=== PATIENT | female | born 1975 ===

== ENCOUNTER 2017-01-28 13:50 | Emergency (ER) | payer MEDICAID, OTHER ==
[2017-01-28 13:53] VITALS: BMI 21.6
[2017-01-28 13:54] VITALS: BP 142/70; PULSE 83; RESP 17; TEMP 98.7; O2SAT 99
--- NOTE | 2017-01-28 14:30 | ED PDOC ---
HPI: Abdomen Time Seen by Provider: 01/28/17 14:15 Chief Complaint (Nursing): Abdominal Pain Chief Complaint (Provider): Abdominal pain History Per: Patient History/Exam Limitations: no limitations Onset/Duration Of Symptoms: Days (2) Location Of Pain/Discomfort: RUQ Quality Of Discomfort: Sharp Associated Symptoms: denies: Fever, Chills, Vomiting, Urinary Symptoms Last Bowel Movement: Yesterday Additional Complaint(s): Patient is a 42 year old female presenting to the emergency department for sharp right upper quadrant pain x2 days. Reports being and that pain is currently minimal. Also notes that this is her second and her last normal menstrual period was 10/08/16. Denies care, vaginal bleeding, vaginal discharge, urinary frequency, urinary pain, hematuria, fever, chills, or vomiting. PCP: none provided. Last Menstral Period: 10/08/16 : 2 Para: 1 Past Medical History Reviewed: Historical Data, Nursing Documentation, Vital Signs Vital Signs: Last Vital Signs Temp 98.7 F 01/28/17 13:53 Pulse 83 01/28/17 13:53 Resp 17 01/28/17 13:53 BP 142/70 01/28/17 13:53 Pulse Ox 99 01/28/17 17:12 - Medical History PMH: Denies: Diabetes, Hepatitis, HIV, HTN, Seizures, Sexually Transmitted Disease - Surgical History Surgical History: No Surg Hx - Family History Family History: States: Unknown Family Hx - Social History Current smoker - smoking cessation education provided: No Ex-Smoker (has not smoked in the last 12 months): No Alcohol: None Drugs: Denies - Home Medications Home Medications: Ambulatory Orders Medication Instructions Recorded Pnv No.121/Iron/Folic Acid 1 each PO DAILY #30 tablet 01/28/17 [ Multivitamin Tablet] - Allergies Allergies/Adverse Reactions: Allergies Allergy/AdvReac Type Severity Reaction Status Date / Time No Known Allergies Allergy Verified 07/15/16 22:47 Review of Systems ROS Statement: Except As Marked, All Systems Reviewed And Found Negative Constitutional: Negative for: Fever, Chills Gastrointestinal: Positive for: Abdominal Pain (sharp right upper quadrant abdominal pain). Negative for: Vomiting Genitourinary Female: Negative for: Dysuria, Frequency, Hematuria, Vaginal Discharge, Vaginal Bleeding Physical Exam - Reviewed Nursing Documentation Reviewed: Yes Vital Signs Reviewed: Yes - Physical Exam Appears: Positive for: Well, Non-toxic, No Acute Distress. Negative for: Uncomfortable Head Exam: Positive for: ATRAUMATIC, NORMAL INSPECTION, NORMOCEPHALIC Skin: Positive for: Normal Color, Warm, Dry Eye Exam: Positive for: EOMI, Normal appearance, PERRL ENT: Positive for: Normal ENT Inspection Neck: Positive for: Normal, Painless ROM, Supple Cardiovascular/Chest: Positive for: Regular Rate, Rhythm. Negative for: Murmur Respiratory: Positive for: Normal Breath Sounds. Negative for: Accessory Muscle Use, Respiratory Distress Gastrointestinal/Abdominal: Positive for: Normal Exam, Soft. Negative for: Tenderness Back: Positive for: Normal Inspection Extremity: Positive for: Normal ROM. Negative for: Pedal Edema Neurologic/Psych: Positive for: Alert, Oriented - Laboratory Results Result Diagrams: 01/28/17 15:01 01/28/17 15:01 - ECG O2 Sat by Pulse Oximetry: 99 (RA) Pulse Ox Interpretation: Normal - Progress ED Course And Treament: us pelvic: 17 week 5 day SLIUP; fhr 147 Medical Decision Making Medical Decision Making: Time: 14:20 Upon initial evaluation, patient is noted to be pain-free in the ER. Initial plan: Labs Ultrasound OB Reevaluation 16:10 Positive beta HCG noted. Pending OB Ultrasound reading. 16:50 OB Ultrasound reviewed and findings noted: There is a single living fetus in variable presentation. Posterior placenta. The placenta is not previa. Bilateral ovaries were not visualized. There are no adnexal masses or cysts evident. Cervix length measures approximately 4.8 cm. Measurements and calculations: Fetus has a composite sonographic age of 17 weeks 5 days. This calculation is based on the biparietal diameter, head circumference, abdominal circumference, and femur length. Estimated heart rate 147 beats per min. Impression: Single living fetus with a composite sonographic age of 17 weeks 5 days. Estimated heart rate 147 beats per min. The study was performed for the emergent evaluation of abdominal pain, and the whole anatomic survey of the fetus was not performed. This should be performed on an outpatient elective basis as clinically warranted. Scribe Attestation: Documented by Kalie Sterling, acting as a scribe for GIOVANY Weiss. Provider Scribe Attestation: All medical record entries made by the Scribe were at my direction and personally dictated by me. I have reviewed the chart and agree that the record accurately reflects my personal performance of the history, physical exam, medical decision making, and the department course for this patient. I have also personally directed, reviewed, and agree with the discharge instructions and disposition. Disposition - Clinical Impression Clinical Impression: Abdominal pain during - Patient ED Disposition Is Patient to be Admitted: No - Disposition [facility] Disposition: Routine/Home Disposition Time: 17:15 Condition: FAIR Prescriptions: Pnv No.121/Iron/Folic Acid [ Multivitamin Tablet] 1 each PO DAILY #30 tablet Instructions: Abdominal Pain in (ED) Print Language: KAZAKH
[2017-01-28 15:18] LABS: ALKALINE PHOSPHATASE 68 U/L (38-126); ALT/SGPT 18 U/L (9-52); AST/SGOT 18 U/L (14-36); BILIRUBIN,TOTAL 0.3 mg/dl (0.2-1.3); BLOOD UREA NITROGEN 8 mg/dl (7-17); CARBON DIOXIDE 23 mmol/L (22-30); CHLORIDE 106 mmol/L (98-107); GFR AFRICAN-AMERICAN > 60; GLUCOSE,RANDOM 99 mg/dL (65-105); POTASSIUM 3.5 MMOL/L (3.6-5.0); SODIUM 137 mmol/l (132-148); TOTAL PROTEIN 7.1 G/DL (6.3-8.2)
[2017-01-28 15:23] LABS: BASO # 0.1 K/uL (0.0-0.2); BASO % 0.7 % (0.0-2.0); EOS # 0.1 K/uL (0.0-0.7); EOS % 0.6 % (0.0-4.0); HEMATOCRIT 28.9 % (34.0-47.0); LYMPH # 2.4 K/uL (1.0-4.3); LYMPH % 24.6 % (20.0-40.0); MEAN CELL VOLUME 73.8 fl (81.0-99.0); MEAN CORPUSCULAR HGB CONC 32.5 g/dL (33.0-37.0); MEAN PLATELET VOLUME 8.4 fl (7.2-11.7); MONO # 0.6 K/uL (0.0-0.8); MONO % 6.2 % (0.0-10.0); NEUT # 6.5 K/uL (1.8-7.0); NEUT % 67.9 % (50.0-75.0); NRBC % 0.2 % (0.0-0.0); RED CELL DISTRIBUTION WIDTH 19.1 % (11.5-14.5); WHITE BLOOD COUNT 9.6 K/uL (4.8-10.8)
--- NOTE | 2017-01-28 16:52 | US ---
OB , limited Indication: abdominal pain in Comparison: None available Technique: Real-time ultrasound was performed through the pelvis. Findings: There is a single living fetus in variable presentation. Posterior placenta. The placenta is not previa. Bilateral ovaries were not visualized. There are no adnexal masses or cysts evident. Cervix length measures approximately 4.8 cm. Measurements and calculations: Fetus has a composite sonographic age of 17 weeks 5 days. This calculation is based on the biparietal diameter, head circumference, abdominal circumference, and femur length. Estimated heart rate 147 beats per min. Impression: Single living fetus with a composite sonographic age of 17 weeks 5 days. Estimated heart rate 147 beats per min. The study was performed for the emergent evaluation of abdominal pain, and the whole anatomic survey of the fetus was not performed. This should be performed on an outpatient elective basis as clinically warranted.
== END 2017-01-28 17:29 | disposition home or self-care (01) ==
LOC: H.ER 13:50
DX: O26.892 Other specified pregnancy related conditions, second trimester (principal); Z3A.17 17 weeks gestation of pregnancy

== ENCOUNTER 2017-02-03 17:47 | Emergency (ER) | payer MEDICAID, OTHER ==
[2017-02-03 17:47] VITALS: BMI 21.6
[2017-02-03 17:58] VITALS: RESP 18; TEMP 97
--- NOTE | 2017-02-03 18:21 | ED PDOC ---
HPI: General Adult Time Seen by Provider: 02/03/17 18:06 Chief Complaint (Nursing): Abdominal Pain Chief Complaint (Provider): Suprapubic pain History Per: Patient History/Exam Limitations: no limitations Onset/Duration Of Symptoms: Days (today) Have you had recent travel within the past 21 days to any of the following countries: [place], [place], [place] or [place]?: No Current Symptoms Are (Timing): Still Present Additional Complaint(s): Pt. with suprapubic pain. Increased urgency of urination. No dysuria or freq of urination. No other abd pain. No weakness, back pain, nausea, vomit, dizziness. Is 17 preg. Had ultrasound and eval in ER recently and was told all was ok. Pending OBGYN appt. No vaginal bleeding or pelvic cramping. Past Medical History Reviewed: Historical Data, Nursing Documentation, Vital Signs Vital Signs: Last Vital Signs Temp 97 F L 02/03/17 17:54 Pulse 82 02/03/17 17:54 Resp 18 02/03/17 17:54 BP 136/72 02/03/17 17:54 Pulse Ox 99 02/03/17 18:25 - Medical History PMH: No Chronic Diseases Denies: Diabetes, Hepatitis, HIV, HTN, Seizures, Sexually Transmitted Disease - Surgical History Surgical History: No Surg Hx - Family History Family History: States: Unknown Family Hx - Social History Current smoker - smoking cessation education provided: No Alcohol: None Drugs: Denies - Home Medications Home Medications: Ambulatory Orders Medication Instructions Recorded Pnv No.121/Iron/Folic Acid 1 each PO DAILY #30 tablet 01/28/17 [ Multivitamin Tablet] - Allergies Allergies/Adverse Reactions: Allergies Allergy/AdvReac Type Severity Reaction Status Date / Time No Known Allergies Allergy Verified 07/15/16 22:47 Review of Systems ROS Statement: Except As Marked, All Systems Reviewed And Found Negative Gastrointestinal: Positive for: Abdominal Pain (suprapubic pain) Physical Exam - Reviewed Nursing Documentation Reviewed: Yes Vital Signs Reviewed: Yes - Physical Exam Appears: Positive for: Non-toxic, No Acute Distress Head Exam: Positive for: ATRAUMATIC, NORMAL INSPECTION, NORMOCEPHALIC Skin: Positive for: Normal Color, Warm, DRY Cardiovascular/Chest: Positive for: Regular Rate, Rhythm Respiratory: Positive for: CNT, Normal Breath Sounds Gastrointestinal/Abdominal: Positive for: Bowel Sounds, Soft, Tenderness ( suprapubic tender mild; no tenderness to umbilicus, right or left upper or lower quadrant.) Back: Positive for: Normal Inspection. Negative for: L CVA Tenderness, R CVA Tenderness Extremity: Positive for: Normal ROM. Negative for: Tenderness, Pedal Edema Neurologic/Psych: Positive for: Alert, Oriented - Laboratory Results Result Diagrams: 02/03/17 18:42 02/03/17 18:42 Interpretation Of Abn Labs: no acute - ECG O2 Sat by Pulse Oximetry: 99 Pulse Ox Interpretation: Normal - Progress ED Course And Treament: 1824: On 01/28/17 pt. had US showing SLIUP. Based on that ectopic ruled out. Will check urine and basic blood work. Will get heart rate. 1916: Stable. AAOx3. Pain free. Tolerated PO. Fu with pcp. Disposition - Clinical Impression Clinical Impression: Pelvic pain affecting - Patient ED Disposition Is Patient to be Admitted: No Counseled Patient/Family Regarding: Studies Performed, Diagnosis, Need For Followup - Disposition [facility] - 02/04/17 Disposition: Routine/Home Disposition Time: 19:00 Condition: STABLE Additional Instructions: Return if not better in 3 days. Instructions: (ED) Forms: [facility] (Finnish)
[2017-02-03 18:50] LABS: BASO # 0.1 K/uL (0.0-0.2); BASO % 0.8 % (0.0-2.0); EOS # 0.1 K/uL (0.0-0.7); EOS % 0.6 % (0.0-4.0); HEMATOCRIT 31.1 % (34.0-47.0); LYMPH # 2.4 K/uL (1.0-4.3); LYMPH % 20.3 % (20.0-40.0); MEAN CELL VOLUME 75.3 fl (81.0-99.0); MEAN CORPUSCULAR HEMOGLOBIN 23.3 pg (27.0-31.0); MEAN PLATELET VOLUME 7.7 fl (7.2-11.7); MONO # 0.7 K/uL (0.0-0.8); MONO % 5.8 % (0.0-10.0); NEUT # 8.7 K/uL (1.8-7.0); NEUT % 72.5 % (50.0-75.0); NRBC % 0.1 % (0.0-0.0); RED CELL DISTRIBUTION WIDTH 19.1 % (11.5-14.5)
[2017-02-03 19:03] LABS: ALKALINE PHOSPHATASE 77 U/L (38-126); ALT/SGPT 22 U/L (9-52); AST/SGOT 23 U/L (14-36); BILIRUBIN,TOTAL 0.4 mg/dl (0.2-1.3); BLOOD UREA NITROGEN 7 mg/dl (7-17); CALCIUM 9.4 mg/dL (8.4-10.2); CARBON DIOXIDE 25 mmol/L (22-30); CHLORIDE 103 mmol/L (98-107); GFR AFRICAN-AMERICAN > 60; GLUCOSE,RANDOM 91 mg/dL (65-105); POTASSIUM 4.3 MMOL/L (3.6-5.0); SODIUM 135 mmol/l (132-148); TOTAL PROTEIN 7.4 G/DL (6.3-8.2)
[2017-02-03 19:07] LABS: RBC URINE 2 /hpf (0-3); URINE BACTERIA RARE (<OCC); URINE BILIRUBIN NEGATIVE (NEGATIVE); URINE BLOOD NEGATIVE (NEGATIVE); URINE COLOR YELLOW (YELLOW); URINE GLUCOSE (UA) NEG (Normal); URINE KETONE NEGATIVE (NEGATIVE); URINE LEUKOCYTE ESTERASE NEG Leu/uL (Negative); URINE PROTEIN NEGATIVE (NEGATIVE); URINE UROBILINOGEN 0.2-1.0 mg/dL (0.2-1.0); WBC URINE < 1 /hpf (0-5)
[2017-02-03 20:30] VITALS: BP 114/74; PULSE 86; O2SAT 100
== END 2017-02-03 20:30 | disposition home or self-care (01) ==
LOC: H.ER 17:47
DX: O26.899 Other specified pregnancy related conditions, unspecified trimester (principal)

== ENCOUNTER 2017-07-02 17:45 | Inpatient (IN) | payer MEDICAID ==
[2017-07-02 18:46] VITALS: BMI 31.4
[2017-07-02] MEDS ORDERED: Oxytocin 30 UNITS in Sodium Chloride 0.9% 500 ML IV SCH ×2 (19:00→23:30)
[2017-07-02 19:02] VITALS: RESP 18; TEMP 98.3; O2SAT 97
[2017-07-02 19:32] LABS: BASO # 0.1 K/uL (0.0-0.2); BASO % 0.7 % (0.0-2.0); EOS % 0.2 % (0.0-4.0); HEMOGLOBIN 12.5 g/dL (12.0-16.0); LYMPH # 1.6 K/uL (1.0-4.3); LYMPH % 19.7 % (20.0-40.0); MEAN CELL VOLUME 90.4 fl (81.0-99.0); MEAN CORPUSCULAR HEMOGLOBIN 28.8 pg (27.0-31.0); MEAN CORPUSCULAR HGB CONC 31.8 g/dL (33.0-37.0); MEAN PLATELET VOLUME 8.7 fl (7.2-11.7); MONO # 0.4 K/uL (0.0-0.8); MONO % 4.9 % (0.0-10.0); NEUT # 5.9 K/uL (1.8-7.0); NEUT % 74.5 % (50.0-75.0); NRBC % 0.1 % (0.0-0.0); RBC 4.35 Mil/uL (3.80-5.20); RED CELL DISTRIBUTION WIDTH 15.9 % (11.5-14.5); WHITE BLOOD COUNT 7.9 K/uL (4.8-10.8)
--- NOTE | 2017-07-02 21:01 | OBHP ---
Datetime: 07/02/2017 18:45 IP Adm Impression: Term, intrauterine IP Admit Plan: Admit to unit; Initiate labor induction protocol Admit Comment, IP Provider: 42 yo ega 39.6 based on confirmed us on 01/28/2017 presents with po ssible SROM. 3 hours preceeding arrival, she reports lots of clear fluid per vagina. +: fm, ctx denies: VB, CP/SOB/N/V/dysuria PNC: Dr. Sutton obhx: 1996 at 40 wks male uncomplicated gyne: denies hx of sti; neg pap med hx: anxiety and depression after father's in 07/2016. Pt was seeing psych at the clinic. No meds; resolved. no SI/HI famhx: none surg: none soc: denies smoking, alcohol, illicit drugs rx: pnv NKDA AAOX3 cardiac: s1s2 no murmur lungs: clear bilaterally no wheezing abdo: gravid, nontender speculum: white mucous discharge, no lesion, nitrazine negative; pelvic: 1 cm, 60 %, -3; GBS: neg; O+ ab-; hiv neg; rpr neg; gc/c: neg; rubella: IM; hhbag: neg; ppd 03/30/2017; tdap: 12/0 01/2017 42 yo IUP 39.6 -Scheduled iol, previously for 20:00; reason: AMA -labs: cbc, ts, cervidil - monitor case dw Dr. Jose Antonio Velazquez MD PGY1 ob addendum: pt seen _ exmined by me. agree w/ above assessment and mariela. Pelvic Type - PN: Adequate Extremities - PN: Normal Abdomen - PN: Normal Back - PN: Normal Breast - PN: Normal Lungs - PN: Normal Heart - PN: Normal Thyroid - PN: Normal Neurologic - PN: Normal HEENT - PN: Normal General - PN: Normal FHR - Baseline A Provider: 140 Pool Provider: Negative Nitrazine Provider: Negative EGA AdmitDate IP: 39.6 Vital Signs Provider: Reviewed; Within Normal Limits IP Chief Complaint: Uterine contractions; Scheduled induction of labor NICHD Variability Prov Fetus A: Moderate 6-25bpm NICHD Accel Fetus A IP Provider: 15X15 FHR Category Provider Fetus A: Category I NICHD Decel Fetus A IP Provider: None Dilatation, Provider: 1 Effacement, Provider: 60 Station, Provider: -3 Genitourinary Exam: Normal DTRs - PN: Normal Datetime: 07/02/2017 18:30 Membranes, Provider: Intact Contraction Comments Provider: rare
--- NOTE | 2017-07-02 21:17 | OBADHP ---
Datetime: 07/02/2017 18:45 Admit Comment, IP Provider: 42 yo ega 39.6 based on confirmed us on 01/28/2017 presents with po ssible SROM. 3 hours preceeding arrival, she reports lots of clear fluid per vagina. +: fm, ctx denies: VB, CP/SOB/N/V/dysuria PNC: Dr. Sutton obhx: 1996 at 40 wks male uncomplicated gyne: denies hx of sti; neg pap med hx: anxiety and depression after father's in 07/2016. Pt was seeing psych at the clinic. No meds; resolved. no SI/HI famhx: none surg: none soc: denies smoking, alcohol, illicit drugs rx: pnv NKDA AAOX3 cardiac: s1s2 no murmur lungs: clear bilaterally no wheezing abdo: gravid, nontender speculum: white mucous discharge, no lesion, nitrazine negative; pelvic: 1 cm, 60 %, -3; GBS: neg; O+ ab-; hiv neg; rpr neg; gc/c: neg; rubella: IM; hhbag: neg; ppd 03/30/2017; tdap: 12/0 01/2017 42 yo IUP 39.6 -Scheduled iol, previously for 20:00; reason: AMA -labs: cbc, ts, cervidil - monitor case dw Dr. Jose Antonio Velazquez MD PGY1 ob addendum: pt seen _ exmined by me. agree w/ above assessment and mariela. Pelvic Type - PN: Adequate Extremities - PN: Normal Abdomen - PN: Normal Back - PN: Normal Breast - PN: Normal Lungs - PN: Normal Heart - PN: Normal Thyroid - PN: Normal Neurologic - PN: Normal HEENT - PN: Normal General - PN: Normal FHR - Baseline A Provider: 140 Pool Provider: Negative Nitrazine Provider: Negative Vital Signs Provider: Reviewed; Within Normal Limits IP Chief Complaint: Uterine contractions; Scheduled induction of labor NICHD Variability Prov Fetus A: Moderate 6-25bpm NICHD Accel Fetus A IP Provider: 15X15 FHR Category Provider Fetus A: Category I NICHD Decel Fetus A IP Provider: None Dilatation, Provider: 1 Effacement, Provider: 60 Station, Provider: -3 Genitourinary Exam: Normal DTRs - PN: Normal EGA AdmitDate IP: 39.6 IP Adm Impression: Term, intrauterine IP Admit Plan: Admit to unit; Initiate labor induction protocol Datetime: 07/02/2017 18:30 Membranes, Provider: Intact Contraction Comments Provider: rare
[2017-07-02] MEDS: Lactated Ringer's 1,000 ML IV SCH (23:10)
[2017-07-02] MEDS ORDERED: Nalbuphine 20 mg/ml Inj (1 ml) IVP PRN (23:33)
[2017-07-03] MEDS: Lactated Ringer's 1,000 ML IV SCH ×4 (00:29→06:40)
[2017-07-03] MEDS ORDERED: Lidocaine 1% Inj (20ml) ONE (01:34)
[2017-07-03] MEDS ORDERED: Fentanyl/Bupivacaine HCl 250 ML EPI ONE (02:45)
[2017-07-03] MEDS ORDERED: Oxycodone/Acetaminophen 5/325 mg Tab PO PRN ×4 (10:08→14:36)
[2017-07-03] MEDS ORDERED: Benzocaine/Menthol SPRAY TOP PRN (14:48)
[2017-07-04 07:03] LABS: BASO # 0.1 K/uL (0.0-0.2); BASO % 0.3 % (0.0-2.0); EOS # 0.1 K/uL (0.0-0.7); EOS % 0.6 % (0.0-4.0); HEMOGLOBIN 10.9 g/dL (12.0-16.0); LYMPH # 2.7 K/uL (1.0-4.3); LYMPH % 16.8 % (20.0-40.0); MEAN CORPUSCULAR HEMOGLOBIN 29.7 pg (27.0-31.0); MEAN PLATELET VOLUME 8.3 fl (7.2-11.7); MONO # 1.1 K/uL (0.0-0.8); MONO % 6.8 % (0.0-10.0); NEUT # 12.1 K/uL (1.8-7.0); NEUT % 75.5 % (50.0-75.0); RBC 3.66 Mil/uL (3.80-5.20); RED CELL DISTRIBUTION WIDTH 16.5 % (11.5-14.5)
--- NOTE | 2017-07-04 10:03 | OBPN ---
Datetime: 07/03/2017 08:21 IP Progress Impression: Normal progression of labor IP Informed Consent Obtain: Vaginal Delivery; Induction of Labor IP Progress Plan: Continue present management; Augmentation; Induction FHR - Baseline A Provider: 140 Presentation-Admit: Vertex IP Progress Note Comment: Patient seen and examined s:denies any pain at this time. - Will start pitocin - Lower epidural pump - begine pushing - Expectant vaginal delivery --- Patient seen with Dr. Jose Antonio Alonzo, PGY-1 Vital Signs Provider: Reviewed NICHD Accel Fetus A IP Provider: 15X15 FHR Category Provider Fetus A: Category I NICHD Variability Prov Fetus A: Moderate 6-25bpm Dilatation, Provider: fully Effacement, Provider: 100 Station, Provider: 1 NICHD Decel Fetus A IP Provider: None Datetime: 07/02/2017 18:45 Pool Provider: Negative Nitrazine Provider: Negative Datetime: 07/02/2017 18:30 Membranes, Provider: Intact Contraction Comments Provider: rare
--- NOTE | 2017-07-04 10:03 | OBDS ---
MATERNAL INFORMATION Provider Comments: ap dx: 40wks; induction; ama pp dx: same procedure: ; plac delivered spont and intact; repair of laceration ob: [place] resident: dr krishnan pgy1 anesth: epid ebl 300cc complic: none findings: viable female; 9_9 3415g neon remained in br w/ pt. LABOR SUMMARY EDC: 07/03/2017 00:00 No. Babies in Womb: 1 LABOR INFORMATION Cervical Ripening Agents: Cervidil Group B Beta Strep: Negative MEMBRANES Membranes Rupture Method: Spontaneous Amniotic Fluid Color: Clear Amniotic Fluid Amount: Moderate Amniotic Fluid Odor: Normal VAGINAL DELIVERY Laceration Extension: Second Degree Laceration Type: Perineal Laceration Repair: Yes Laceration Repair Note: with 3-0 vicryl PLACENTA INFORMATION BABY A Placenta Method of Delivery: Expressed Placenta Status: Delivered
--- NOTE | 2017-07-05 09:10 | OBDCSUM ---
Datetime: 07/05/2017 06:20 Discharged to, Provider: Home Follow up at, Provider: Dr Sutton Disch Instr Activity: Normal activity; May Shower Disch Instr Diet: Regular Discharge Instructions, Provider: Routine instructions given Discharge Diagnosis, Provider: Term Delivered Discharge Time: 07/05/2017 10:00 Follow up in weeks, Provider: 6 weeks Disch Referrals: None Contraception discussed, Prov: Yes Disch Activity Restrictions: No exercising; No lifting; Minimize stair-climbing; No sexual activity; Nothing in vagina - [place], tampons, douche Discharge Comment, Provider: DOA: 07/02/2017. EGA: 39.6 weeks Diagnosis: PRisk factors: AMA Summary of : L_D summary: DOL: 07/03/2017 at 9:38 am NB: F : 02/12 Weight: 3415 g PP summary: No serious complications during PP. Lochia= menses, mild pain, controlled with medications Rubella immune Blood type: O+ CBC pp: 10.9/33.0 Discharge Date: 07/05/2017 at 10 am Discharge Instructions: -encourage -Ibuprofen for pain PRN -Colace for constipation -Ambulate as tolerated -f/u NB visit and PP visit Contraception after Delivery: Undecided
--- NOTE | 2017-07-05 09:11 | OBPPN ---
Datetime: 07/05/2017 06:18 PP Pain Prov: Within normal limits PP Nausea Prov: Denies PP Flatus Prov: Yes PP BM Prov: Yes PP Breasts Prov: Not Done PP Heart Prov: Normal PP Lungs Prov: Normal PP Abdomen/Uterus Prov: Normal PP Lochia Prov: Normal PP Vulva/Perineum Prov: Not Done PP CVA Tenderness Prov: Not Done PP Extremities Prov: Normal PP C/S Incision Prov: Not Applicable PP Progress Prov: Normal PP Comments Phys Exam Prov: Abd: Soft, NT, BS present PP Impression Prov: Normal progression PP Plan Prov: Discharge PP Progress Note Prov: S: 42 yo s/p NVD. Pt. is seen and examined at bedside this morning. N o overnight events. Pt reports occasional abdominal pain, but well controlled with pain meds. Pt is a mbulating without any difficulties. Breast/bottle feeding baby. Tolerating PO diet. Lochia is similar to light menses in volume. Voiding freely, +BM. Denies fever/chills, diarrhea, nausea/vomiting, ches t pain, dyspnea, and dizziness. VS: stable Gen: NAD Cardio: + s1s2, no m/r/g Resp: clear breath sounds b/l Abdomen: BS+, NT, Uterus is firm and at the level of the umbilicus. Ext: No edema, calves nontender Neuro/Psych: AAOx3, preserved affect and mood. A/P: 42 yo s/p NVD. Pt remains afebrile, tolerating pain with medication, doing well on PP D 2. OOB with caution. SCDs for DVT prophylaxis, pt ambulating. Ibuprofen 600mg for pain. Colace 100mg PO BID for constipation Encourage . Encourage ambulation. PP CBC: 10.9/33.0 Discharge today. YBecerra PGY 1 Attending Note: Pt was discussed with Resident and I agree with the above. IP PP Procedures: None Vital Signs Provider PP: Reviewed
[2017-07-05 20:08] VITALS: BP 125/70; PULSE 72
== END 2017-07-05 16:00 | disposition home or self-care (01) | DRG 373 ==
LOC: H.EROB2 17:45 → H.L&D 18:45 → H.OB/GYN 07-03 14:30
PROVIDERS: ADMIT Obstetrics & Gynecology; ATTEND Obstetrics & Gynecology
PROC: 4A1HXCZ Monitoring of Products of Conception, Cardiac Rate, External Approach (ICD-10-PCS; 2017-07-02)
PROC: 10E0XZZ Delivery of Products of Conception, External Approach (ICD-10-PCS; principal; 2017-07-03)
PROC: 0KQM0ZZ Repair Perineum Muscle, Open Approach (ICD-10-PCS; 2017-07-03)
DX: O70.1 Second degree perineal laceration during delivery (principal); K59.00 Constipation, unspecified; O09.523 Supervision of elderly multigravida, third trimester; Z37.0 Single live birth; Z3A.39 39 weeks gestation of pregnancy